=== PATIENT | female | born 1950 | race Caucasian/White ===

== ENCOUNTER 2017-08-01 12:43 | Day surgery (SDC) | payer BC ==
[2017-08-01] VITALS (7 sets, daily range): BP systolic 104–124; BP diastolic 54–76; PULSE 46–71; TEMP 97.5–98.3
[~2017-08-01] VITALS: Ht 160 cm; Wt 77.9 kg
[2017-08-01] MEDS ORDERED: GLUCOSAMINE & C1 CA2 PO (13:22)
== END 2017-08-01 16:50 | disposition home or self-care (01) ==
LOC: SDCO 12:43
DX: K29.30 Chronic superficial gastritis without bleeding (principal); R13.10 Dysphagia, unspecified; Z88.1 Allergy status to other antibiotic agents
CPT/HCPCS: OP; J2250; J2405; J3010; J7030

== ENCOUNTER 2018-08-21 10:07 | Emergency (ER) | payer BC ==
[~2018-08-21] VITALS: Ht 160 cm; Wt 78.2 kg
[~2018-08-21 10:07] MED LIST: GLUCOSAMINE & C1 CA2 PO
[2018-08-21 10:12] VITALS: TEMP 96.9
[2018-08-21 10:57] LABS: BASO # 0.1 (0.0-0.2); BASO % 0.9 % (0.0-2.0); EOS # 0.1 (0.0-0.7); EOS % 0.9 % (0-4.0); GRAN # 3.8 (1.4-6.5); HEMATOCRIT 45.1 % (37.0-47.0); HEMOGLOBIN 14.7 g/dl (12.5-16.0); LYMPH # 1.4 (1.2-3.4); LYMPH % 24.3 % (20.0-51.0); MEAN CELL VOLUME 89 fl (80.0-100.0); MEAN CORPUSCULAR HEMOGLOBIN 29 pg (27.0-31.0); MEAN CORPUSCULAR HGB CONC 33 g/dl (33.0-37.0); MONO # 0.4 (0.1-0.6); MONO % 7.7 % (1.7-9.3); PLATELET COUNT 259 K/mm3 (130-400); RED BLOOD COUNT 5.09 M/mm3 (4.10-5.30); REDCELL DISTRIBUTION WIDTH-CV 13.3 % (11.5-14.5)
[2018-08-21 11:02] LABS: ALANINE AMINOTRANSFERASE 13 U/L (9-52); ALBUMIN 4.5 gm/dL (3.5-5.0); ALKALINE PHOSPHATASE 64 U/L (50-136); ANION GAP 10 mmol/L (7-16); AST,SGOT 26 U/L (15-37); BILIRUBIN,TOTAL 0.6 mg/dL (0.0-1.0); BLOOD UREA NITROGEN 20 mg/dL (7-17); CALCIUM 9.9 mg/dL (8.4-10.2); CARBON DIOXIDE 26 mmol/L (22-30); CHLORIDE 103 mmol/L (98-107); CREATININE, serum 0.59 mg/dL (0.52-1.25); GLUCOSE 115 mg/dL (74-106); LIPASE 87 U/L (23-300); POTASSIUM 4.4 mmol/L (3.4-5.0); SODIUM 139 mmol/L (137-145); TOTAL PROTEIN 7.7 gm/dL (6.4-8.2)
[2018-08-21 11:03] LABS: C-REACTIVE PROTEIN < 0.5 mg/dL (0.0-0.9)
[2018-08-21 11:28] LABS: COLLECTION METHOD CLEAN CATCH
[2018-08-21 11:44] LABS: MUCOUS Present /lpf; PH 8 (5-8); SQUAMOUS EPITHELIAL 0-2 /hpf; URINE APPEARANCE Hazy; URINE BACTERIA Rare /hpf; URINE BILIRUBIN Negative (NEGATIVE); URINE BLOOD 3+ (NEGATIVE); URINE COLOR Yellow; URINE GLUCOSE Negative (NEGATIVE); URINE KETONE Trace (NEGATIVE); URINE LEUKOCYTE ESTERASE Negative (NEGATIVE); URINE NITRATE Positive (NEGATIVE); URINE PROTEIN(semi-quant) 1+ (NEGATIVE); URINE RBC >50 /hpf; URINE UROBILINOGEN Negative (NEGATIVE)
[2018-08-21] MEDS ORDERED: MOTRIN 600600 MG/TAB PO (12:05)
[2018-08-21] MEDS ORDERED: PERCOCET 325 MG1 TA2 PO (12:05)
[2018-08-21] MEDS ORDERED: ZOFRAN ODT4 MG PO (12:05)
[2018-08-21 12:29] VITALS: BP 119/63; PULSE 59
== END 2018-08-21 12:31 | disposition home or self-care (01) ==
LOC: COL.ER 10:07
PROVIDERS: Physician Assistant
DX: N13.2 Hydronephrosis with renal and ureteral calculous obstruction (principal); Z98.890 Other specified postprocedural states; Z88.2 Allergy status to sulfonamides
CPT/HCPCS: J1170; J1885; J2405; J7030; Q9967

== ENCOUNTER → 2019-01-10 | Outpatient (CLI) | payer BC, MEDICARE ==
[~2019-01-10] MED LIST changes: +MOTRIN 600600 MG/TAB PO; +PERCOCET 325 MG1 TA2 PO; +ZOFRAN ODT4 MG PO
== END ==
LOC: MC.RAD 13:08
DX: Z12.31 Encounter for screening mammogram for malignant neoplasm of breast (principal)

== ENCOUNTER → 2022-02-02 | Outpatient (CLI) | payer BC | LOC: MC.RAD 13:25 | DX: Z12.31 Encounter for screening mammogram for malignant neoplasm of breast (principal) ==